=== PATIENT | female | born 1980 | race Caucasian/White ===

== ENCOUNTER 2016-07-16 18:21 | Emergency (ER) | payer BC ==
[~2016-07-16] VITALS: Ht 180.3 cm; Wt 87.8 kg
[2016-07-16 18:31] VITALS: BP 164/88; PULSE 71; RESP 18; TEMP 97.7; O2SAT 98
[2016-07-16] MEDS ORDERED: ACETAMINOPHEN 325 MG TAB PO ONE (19:00)
[2016-07-16] MEDS ORDERED: LISINOPRIL 10 MG TAB PO ONE (19:00)
--- NOTE | 2016-07-16 19:08 | PD ---
HPI Chief Complaint: Eye Problems/Injury Time Seen by Provider: 18:49 Travel History International Travel<30 days: No Contact w/Intl Traveler<30days: No Traveled to known affect area: No History of Present Illness HPI This 36-year-old female presents for evaluation of high blood pressure. She has been having some left-sided headache and had some mild blurring of vision. This started yesterday. 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 The retail agent decayed at the vasculature in her retina looked engorged and noted that her blood pressure was elevated at 158/110 repeated 178/118. She recommended that the patient go to an emergency room for evaluation of her high blood pressure. Patient has never had high blood pressure in fact she had measured previously and has always been normal. [facility] Past Medical History Medical History: Denies Significant Hx Tetanus Vaccination: Unknown Influenza Vaccination: Yes ?: Not Past Surgical History Section: Yes Social History Alcohol Use: Yes Tobacco Use: No Substance Use: No Allergies-Medications (Allergen,Severity, Reaction): Coded Allergies: No Known Allergies (Unverified , 07/16/16) Reported Meds & Prescriptions Reported Meds & Active Scripts Active No Active Prescriptions or Reported Medications Review of Systems General / Constitutional: No: Fever, Chills Eyes: Positive: Blurred Vision, No: Diploplia HENT: Positive: Headaches Cardiovascular: No: Chest Pain or Discomfort, Palpitations Respiratory: No: Cough, Shortness of Breath Gastrointestinal: No: Vomiting, Diarrhea Genitourinary: No: Urgency, Frequency Musculoskeletal: No: Myalgias, Arthralgias Skin: No Rash Neurologic: No: Weakness, Focal Abnormalities Psychiatric: No: Anxiety Physical Exam Narrative GENERAL: Well-developed female SKIN: Focused skin assessment warm/dry. HEAD: Atraumatic. Normocephalic. EYES: Pupils equal and round. No scleral icterus. No injection or drainage. Ankles are dilated from her visit to the retail agent ENT: No nasal bleeding or discharge. Mucous membranes pink and moist. NECK: Trachea midline. No JVD. CARDIOVASCULAR: Regular rate and rhythm. No murmur appreciated. RESPIRATORY: No accessory muscle use. Clear to auscultation. Breath sounds equal bilaterally. GASTROINTESTINAL: Abdomen soft, non-tender, nondistended. Hepatic and splenic margins not palpable. MUSCULOSKELETAL: No obvious deformities. No clubbing. No cyanosis. No edema. NEUROLOGICAL: Awake and alert. No obvious cranial nerve deficits. Motor grossly within normal limits. Normal speech. PSYCHIATRIC: Initially quite anxious Data Data Last Documented VS Vital Signs Date Time Temp Pulse Resp B/P Pulse Ox O2 Delivery O2 Flow Rate FiO2 07/16/16 19:56 72 141/68 07/16/16 18:31 97.7 18 98 Orders Electrocardiogram (07/16/16 18:59) Complete Blood Count With Diff (07/16/16 18:59) Basic Metabolic Panel (Bmp) (07/16/16 18:59) Troponin I (07/16/16 18:59) Ct Brain W/O Iv Contrast(Rout) (07/16/16 18:59) Lisinopril (Prinivil) (07/16/16 19:00) Acetaminophen (Tylenol) (07/16/16 19:00) Labs Laboratory Tests Test 07/16/16 19:40 White Blood Count 9.1 TH/MM3 Red Blood Count 5.05 MIL/MM3 Hemoglobin 14.5 GM/DL Hematocrit 43.3 % Mean Corpuscular Volume 85.6 FL Mean Corpuscular Hemoglobin 28.7 PG Mean Corpuscular Hemoglobin 33.5 % Concent Red Cell Distribution Width 11.4 % Platelet Count 290 TH/MM3 Mean Platelet Volume 8.4 FL Neutrophils (%) (Auto) 61.1 % Lymphocytes (%) (Auto) 30.7 % Monocytes (%) (Auto) 4.8 % Eosinophils (%) (Auto) 2.9 % Basophils (%) (Auto) 0.5 % Neutrophils # (Auto) 5.6 TH/MM3 Lymphocytes # (Auto) 2.8 TH/MM3 Monocytes # (Auto) 0.4 TH/MM3 Eosinophils # (Auto) 0.3 TH/MM3 Basophils # (Auto) 0.0 TH/MM3 CBC Comment DIFF FINAL Differential Comment Sodium Level 142 MEQ/L Potassium Level 3.5 MEQ/L Chloride Level 106 MEQ/L Carbon Dioxide Level 26.3 MEQ/L Anion Gap 10 MEQ/L Blood Urea Nitrogen 10 MG/DL Creatinine 0.89 MG/DL Estimat Glomerular Filtration 72 ML/MIN Rate Random Glucose 134 MG/DL Calcium Level 8.9 MG/DL Troponin I LESS THAN 0.02 NG/ML MDM Medical Decision Making Medical Screen Exam Complete: Yes Emergency Medical Condition: Yes Medical Record Reviewed: Yes Differential Diagnosis Differential includes hypertension, anxiety, headache,tumor Narrative Course CT scan of the brain is negative. CBC and 7 are negative. Patient's blood pressure has come down with no medications. He is stable for discharge. She is still having some headache and blurred vision I recommended she follow up with GI doctor again. Her blood pressure is 131/69 and she does not require antihypertensive medication. Diagnosis Primary Impression: Headache Additional Instructions: Follow-up with retail agent, neurology Scripts No Active Prescriptions or Reported Meds Disposition: 01 DISCHARGE HOME Condition: Stable Jack Bryson MD Jul 16, 2016 19:08
[2016-07-16 19:45] VITALS: BP 156/86; PULSE 77
--- NOTE | 2016-07-16 19:48 | RADHPO ---
EXAM DATE/TIME: 07/16/2016 19:23 [facility] COMPARISON: No previous studies available for comparison. INDICATIONS : Cephalgia. Hypertension. RADIATION DOSE: 59.97 CTDIvol (mGy) MEDICAL HISTORY : Hypertension. SURGICAL HISTORY : section. ENCOUNTER: Initial ACUITY: 1 day PAIN SCALE: 5/10 LOCATION: Left cranial TECHNIQUE: Multiple contiguous axial images were obtained of the head. Using automated exposure control and adj ustment of the mA and/or kV according to patient size, radiation dose was kept as low as reasonably a chievable to obtain optimal diagnostic quality images. FINDINGS: CEREBRUM: The ventricles are normal for age. No evidence of midline shift, mass lesion, hemorrhage or acute in farction. No extra-axial fluid collections are seen. POSTERIOR FOSSA: The cerebellum and brainstem are intact. The 4th ventricle is midline. The cerebellopontine angle i s unremarkable. EXTRACRANIAL: The visualized portion of the orbits is intact. SKULL: The calvaria is intact. No evidence of skull fracture. CONCLUSION: Normal examination. Landon Charles MD on July 16, 2016 at 19:45 Board Certified Radiologist. This report was verified electronically.
[2016-07-16 19:56] VITALS: BP 141/68; PULSE 72
[2016-07-16 19:57] LABS: AUTOMATED NEUTROPHIL # 5.6 TH/MM3 (1.8-7.7); BASOPHIL % 0.5 % (0.0-2.0); EOSINOPHIL # 0.3 TH/MM3 (0-0.4); EOSINOPHIL % 2.9 % (0.0-4.0); HEMATOCRIT 43.3 % (35.0-46.0); HEMO FLAGS DIFF FINAL; LYMPH % 30.7 % (9.0-44.0); LYMPHOCYTE # 2.8 TH/MM3 (1.0-4.8); MEAN CELL VOLUME 85.6 FL (80.0-100.0); MEAN CORPUSCULAR HEMOGLOBIN 28.7 PG (27.0-34.0); MEAN CORPUSCULAR HGB CONC 33.5 % (32.0-36.0); MONO % 4.8 % (0.0-8.0); NEUT % 61.1 % (16.0-70.0); PLATELET COUNT 290 TH/MM3 (150-450); RED BLOOD COUNT 5.05 MIL/MM3 (4.00-5.30); RED CELL DISTRIBUTION WIDTH 11.4 % (11.6-17.2); WHITE BLOOD COUNT 9.1 TH/MM3 (4.0-11.0)
[2016-07-16 20:07] LABS: CHLORIDE 106 MEQ/L (98-107); POTASSIUM 3.5 MEQ/L (3.5-5.1); SODIUM (NA) 142 MEQ/L (136-145)
[2016-07-16 20:10] LABS: ANION GAP 10 MEQ/L (5-15); BICARBONATE 26.3 MEQ/L (21.0-32.0); BLOOD UREA NITROGEN 10 MG/DL (7-18)
[2016-07-16 20:13] LABS: GLOMERULAR FILTRATION RATE 72 ML/MIN (>89)
[2016-07-16 20:42] VITALS: BP 123/66
--- NOTE | 2016-07-17 10:37 | EKG ---
Date Performed: 07/16/2016 Time Performed: 19:15:48 PTAGE: 36 years EKG: Sinus rhythm Normal ECG NO PREVIOUS TRACING DOCTOR: Eleanor Pepe Interpretating Date/Time 07/17/2016 10:36:33
== END 2016-07-16 20:46 | disposition home or self-care (01) ==
LOC: PHED 18:21
DX: R51 Headache (principal); H53.8 Other visual disturbances; R03.0 Elevated blood-pressure reading, without diagnosis of hypertension
CPT/HCPCS: 70450; 80048; 84484; 85025; 93005

== ENCOUNTER 2016-08-05 17:51 | Emergency (ER) | payer BC ==
[~2016-08-05] VITALS: Ht 180.3 cm; Wt 87.5 kg
[2016-08-05 17:55] VITALS: BP 158/97; PULSE 69; RESP 16; TEMP 97.9; O2SAT 99
[2016-08-05 18:29] VITALS: BP 132/72; PULSE 67; RESP 15; O2SAT 98
[2016-08-05] MEDS ORDERED: HYDR12.56 PO (18:31)
--- NOTE | 2016-08-05 18:53 | PD ---
HPI Chief Complaint: Headache Time Seen by Provider: 18:08 Travel History International Travel<30 days: No Contact w/Intl Traveler<30days: No Traveled to known affect area: No History of Present Illness HPI The patient was seen and examined in the presence of the nurse. This patient has been having frequent headaches for the last few weeks. She's had left eye blurry vision for few weeks as well. She's been tracking her blood pressures which are often in the 150-160 systolic range but today she got as high as 190. She says that when she develops a high blood pressure she gets a headache. Yesterday she developed a strip of numbness on the top of her right arm. No muscle weakness or sensory loss. She denies speech slurring or confusion. At this time her blood pressure is 132 systolic and she has no headache. PFSH Past Medical History ?: Not Past Surgical History Section: Yes Social History Alcohol Use: Yes (OCC) Tobacco Use: No Substance Use: No Allergies-Medications (Allergen,Severity, Reaction): Coded Allergies: No Known Allergies (Unverified , 08/05/16) Reported Meds & Prescriptions Reported Meds & Active Scripts Active Hydrochlorothiazide 12.5 Mg Tab 12.5 Mg PO DAILY Review of Systems General / Constitutional: No: Fever Eyes: Positive: Blurred Vision, No: Visual changes HENT: Positive: Headaches Cardiovascular: No: Chest Pain or Discomfort Respiratory: No: Shortness of Breath Gastrointestinal: No: Abdominal Pain Genitourinary: No: Dysuria Musculoskeletal: No: Pain Skin: No Rash Neurologic: Positive: Headache, Sensory Disturbance, No: Weakness Psychiatric: No: Depression Endocrine: No: Polydipsia Hematologic/Lymphatic: No: Easy Bruising Physical Exam Narrative GENERAL: Well-nourished, well-developed patient in no apparent distress. SKIN: Focused skin assessment reveals no rash and nodules. Skin is Warm and dry. HEAD: Atraumatic. Normocephalic. EYES: Pupils equal and round. No scleral icterus. No injection or drainage. ENT: No nasal bleeding or discharge. Mucous membranes pink and moist. NECK: Trachea midline. No JVD. CARDIOVASCULAR: Regular rate and rhythm. No murmur appreciated. RESPIRATORY: No accessory muscle use. Clear to auscultation. Breath sounds equal bilaterally. GASTROINTESTINAL: Abdomen soft, non-tender, nondistended. Hepatic and splenic margins not palpable. MUSCULOSKELETAL: No obvious deformities. No clubbing. No cyanosis. No edema. NEUROLOGICAL: Awake and alert. No obvious cranial nerve deficits. Motor grossly within normal limits. Normal speech. Patient has normal sensation to sharp and light touch excepting a thin strip on the top of her right arm. It is not on either side her bottom of that arm PSYCHIATRIC: Appropriate mood and affect; insight and judgment normal. Data Data Last Documented VS Vital Signs Date Time Temp Pulse Resp B/P Pulse Ox O2 Delivery O2 Flow Rate FiO2 08/05/16 18:29 67 15 132/72 98 08/05/16 17:55 97.9 MDM Medical Decision Making Medical Screen Exam Complete: Yes Emergency Medical Condition: Yes Medical Record Reviewed: Yes Differential Diagnosis Atypical migraine, hypertensive urgency, essential hypertension Narrative Course I have reviewed the patient's electronic medical record. Patient was here 3 weeks ago for headache and had normal blood work and normal CT of the brain Had a lengthy discussion with the patient. Patient has seen her primary physician for this problem. Patient has an outpatient MRI/MRA happening tomorrow. Patient also went to a chiropractor. Her outpatient physicians felt this was more consistent with a pinched nerve in her neck. It is certainly in a dermatomal pattern and not suspicious for acute stroke Possibility also exists of this being an atypical migraine causing very neurologic symptoms. The blurry vision has been going on for weeks and she has had a ophthalmology evaluation for it already Given her tracking pressures which are mostly elevated I wrote her prescription for starting dose hydrochlorothiazide. We discussed how usually the family physician should be doing this but the patient is very frustrated that her doctor is minimizing her elevated blood pressures in her opinion. She should track her blood pressures daily and record them for the primary physician. I don't see any objective evidence or have any clinical suspicion of acute stroke. She currently has no headache and a normal blood pressure. Brain CT 3 weeks ago was normal. She is going for outpatient studies tomorrow. I discussed that I would make an appointment with neurology for complete neurologic evaluation. Should she have any clinical worsening she should return promptly. Diagnosis Primary Impression: Elevated blood pressure reading Additional Impressions: Headache Qualified Code: R51 - Acute nonintractable headache, unspecified headache type Blurry vision, left eye Additional Instructions: Check and record blood pressure daily Start Hydrochlorothiazide Recommend follow-up with a neurologist and your primary care physician Obtain outpatient studies tomorrow as scheduled Med/Other Pt SpecificInfo: Prescription(s) given Scripts Hydrochlorothiazide 12.5 Mg Tab12.5 Mg PO DAILY #30 TAB Ref 0 Prov:Oliver Peterson MD 08/05/16 Disposition: 01 DISCHARGE HOME Condition: Stable Oliver Peterson MD August 05, 2016 18:53
== END 2016-08-05 19:14 | disposition home or self-care (01) ==
LOC: PHED 17:51
DX: R51 Headache (principal); R03.0 Elevated blood-pressure reading, without diagnosis of hypertension; H53.8 Other visual disturbances
CPT/HCPCS: 99283